=== PATIENT | female | born 1965 | race Caucasian/White ===

== ENCOUNTER → 2017-12-17 | Outpatient (CLI) | payer SELFPAY ==
[2017-12-17 15:16] LABS: INR 1.57; PROTHROMBIN TIME 19.2 SECONDS (12.4-14.5)
== END ==
LOC: M LAB 13:44
DX: D68.9 Coagulation defect, unspecified (principal); G45.9 Transient cerebral ischemic attack, unspecified
CPT/HCPCS: 85610

== ENCOUNTER → 2017-12-27 | Outpatient (CLI) | payer SELFPAY ==
[2017-12-27 16:31] LABS: PROTHROMBIN TIME 24.3 SECONDS (12.4-14.5)
== END ==
LOC: M LAB 15:37
DX: D68.9 Coagulation defect, unspecified (principal)
CPT/HCPCS: 85610

== ENCOUNTER → 2018-01-09 | Outpatient (CLI) | payer SELFPAY ==
[2018-01-09 14:08] LABS: INR 2.17
== END ==
LOC: M LAB 11:57
DX: D68.9 Coagulation defect, unspecified (principal); G45.9 Transient cerebral ischemic attack, unspecified
CPT/HCPCS: 85610

== ENCOUNTER → 2018-01-21 | Outpatient (CLI) | payer SELFPAY ==
[2018-01-21 17:47] LABS: INR 2.35; PROTHROMBIN TIME 26.6 SECONDS (12.4-14.5)
== END ==
LOC: M LAB 16:07
DX: D68.9 Coagulation defect, unspecified (principal)

== ENCOUNTER → 2018-02-04 | Outpatient (CLI) | payer SELFPAY ==
[2018-02-04 15:31] LABS: INR 2.29; PROTHROMBIN TIME 26.1 SECONDS (12.4-14.5)
== END ==
LOC: M LAB 14:56
DX: D68.9 Coagulation defect, unspecified (principal)
CPT/HCPCS: 85610

== ENCOUNTER → 2018-02-19 | Outpatient (CLI) | payer SELFPAY | LOC: M LAB 12:14 | DX: D68.4 Acquired coagulation factor deficiency (principal) | CPT/HCPCS: 85610 ==

== ENCOUNTER → 2018-03-06 | Outpatient (CLI) | payer SELFPAY ==
[2018-03-06 07:59] LABS: INR 2.41; PROTHROMBIN TIME 26.7 SECONDS (12.1-14.4)
== END ==
LOC: M LAB 07:37
DX: D68.9 Coagulation defect, unspecified (principal)
CPT/HCPCS: 85610

== ENCOUNTER → 2018-03-27 | Outpatient (CLI) | payer SELFPAY ==
[2018-03-27 10:09] LABS: INR 3.46; PROTHROMBIN TIME 35.6 SECONDS (12.1-14.4)
== END ==
LOC: M LAB 09:22
DX: D68.9 Coagulation defect, unspecified (principal); G45.9 Transient cerebral ischemic attack, unspecified
CPT/HCPCS: 85610

== ENCOUNTER → 2018-04-16 | Outpatient (CLI) | payer SELFPAY ==
[2018-04-16 15:01] LABS: INR 3.78; PROTHROMBIN TIME 38.2 SECONDS (12.1-14.4)
== END ==
LOC: M LAB 14:23
DX: Z79.01 Long term (current) use of anticoagulants (principal); D86.9 Sarcoidosis, unspecified
CPT/HCPCS: 85610